=== PATIENT | female | born 1940 ===

== ENCOUNTER 2018-08-13 13:13 | Outpatient (REF) | payer MEDICARE, BC, SELFPAY ==
[2018-08-13 22:02] LABS: BUN 19 mg/dL (7-18); CREATININE 1.13 mg/dL (0.55-1.02); Calcium 9.7 mg/dL (8.5-10.1); Chloride 103 mmol/L (98-107); Estimated GFR 46.45 (mL/min/1.73m2); Glucose 107 mg/dL (70-100); Potassium 4.6 mmol/L (3.5-5.1); Sodium 144 mmol/L (136-145)
== END 2018-08-13 13:33 ==
LOC: NCHCN 13:13
PROVIDERS: PCP Internal Medicine; Visit Provider Internal Medicine
DX: I10 Essential (primary) hypertension (principal); J44.9 Chronic obstructive pulmonary disease, unspecified
CPT/HCPCS: 80048

== ENCOUNTER 2019-11-20 13:31 | Outpatient (REF) | payer MEDICARE, BC, SELFPAY ==
[2019-11-20 21:52] LABS: ALT 111 U/L (14-59); AST 80 U/L (15-37); Albumin 3.8 g/dL (3.4-5.0); Alkaline Phosphatase 125 U/L (46-116); Anion Gap 10.4 mmol/L (3-11); BUN 18 mg/dL (7-18); Bilirubin, Total 0.7 mg/dL (0.2-1.0); CO2 29.6 mmol/L (21.0-32.0); CREATININE 0.96 mg/dL (0.55-1.02); Calcium 9.2 mg/dL (8.5-10.1); Chloride 103 mmol/L (98-107); Estimated GFR 55.92 (mL/min/1.73m2); Glucose 99 mg/dL (74-106); Potassium 4.3 mmol/L (3.5-5.1); Sodium 143 mmol/L (136-145); Total Protein 6.8 g/dL (6.4-8.2)
== END 2019-11-20 13:51 ==
LOC: NCHCN 13:31
PROVIDERS: PCP Internal Medicine; Visit Provider Internal Medicine
DX: I10 Essential (primary) hypertension (principal); K21.9 Gastro-esophageal reflux disease without esophagitis; J44.9 Chronic obstructive pulmonary disease, unspecified; G47.00 Insomnia, unspecified
CPT/HCPCS: 80053

== ENCOUNTER 2020-01-08 10:31 | Outpatient (REF) | payer MEDICARE, BC, SELFPAY ==
[2020-01-08 21:09] LABS: Abs Immature Grans 0.02 10^3/uL (0.0-0.06); Absolute Basophil Count 0.09 10^3/uL (0.0-0.2); Absolute Eosinophil Count 0.46 10^3/uL (0.0-0.7); Absolute Lymphocyte Count 1.67 10^3/uL (1.2-3.4); Absolute Monocyte Count 0.83 10^3/uL (0.1-0.8); Absolute Neutrophil Count 5.87 10^3/uL (1.2-6.7); Eosinophils % 5.1; HCT 47.4 % (36.0-46.0); Immature Grans % 0.2; Lymphocytes % 18.7; MCH 32.3 pg (27.0-33.0); MCHC 33.8 % (32.0-36.0); MCV 95.6 fL (80-95); Monocytes % 9.3; Neutrophils % 65.7; Nucleated RBC 0 %; Platelet Count 224 10^3/uL (130-400); RBC 4.96 10^6/uL (3.93-5.22); RDW 12.4 % (11.7-14.6); RDW-SD 44.1 fL; WBC 8.94 10^3/uL (4.4-10.8)
[2020-01-08 21:26] LABS: INR 1.1 (0.9-1.1); Prothrombin Time 10.8 sec (9.3-11.0)
[2020-01-11 11:11] LABS: HBs Antibody, Quant <3.1 mIU/mL (See Note); Hepatitis B Surface Ab Negative (See Note)
[2020-01-11 11:19] LABS: Hepatitis B Surface Ag Negative (Negative)
[2020-01-11 12:51] LABS: Hepatitis C Ab w Rflx HCV PCR Negative (Negative)
== END 2020-01-08 10:51 ==
LOC: NCHCN 10:31
PROVIDERS: PCP Internal Medicine; Visit Provider Internal Medicine
DX: R94.5 Abnormal results of liver function studies (principal); Z11.59 Encounter for screening for other viral diseases
CPT/HCPCS: 86706; 86803; 87340; 85025; 85610

== ENCOUNTER 2020-07-01 22:16 | Outpatient (REF) | payer MEDICARE, BC, SELFPAY ==
[2020-07-01 21:21] LABS: HCT 45.4 % (36.0-46.0); MCH 31.7 pg (27.0-33.0); MPV 10.3 fL (8.0-11.0); Platelet Count 183 10^3/uL (130-400); RBC 4.73 10^6/uL (3.93-5.22); RDW 13.2 % (11.7-14.6); RDW-SD 46.9 fL; WBC 7.84 10^3/uL (4.4-10.8)
[2020-07-01 21:50] LABS: ALT 114 U/L (14-59); AST 82 U/L (15-37); Albumin 3.8 g/dL (3.4-5.0); Alkaline Phosphatase 114 U/L (46-116); Anion Gap 10.9 mmol/L (3-11); BUN 21 mg/dL (7-18); Bilirubin, Total 0.8 mg/dL (0.2-1.0); CO2 28.1 mmol/L (21.0-32.0); Calcium 9.7 mg/dL (8.5-10.1); Chloride 103 mmol/L (98-107); Estimated GFR 53.21 (mL/min/1.73m2); Ferritin 706 ng/mL (8-252); Glucose 92 mg/dL (74-106); Potassium 3.9 mmol/L (3.5-5.1); Sodium 142 mmol/L (136-145)
== END 2020-07-01 22:17 | disposition home or self-care (01) ==
LOC: NCHCN 22:16
PROVIDERS: PCP Internal Medicine; Visit Provider Internal Medicine
DX: I10 Essential (primary) hypertension (principal); K74.60 Unspecified cirrhosis of liver
CPT/HCPCS: 80053; 85027; 82728

== ENCOUNTER 2020-07-06 21:44 | Outpatient (REF) | payer MEDICARE, BC, SELFPAY ==
[2020-07-06 22:19] LABS: Iron 150 ug/dL (50-170); Total Iron Binding Capacity 344 ug/dL (250-450); Transferrin Sat 44 % (15-50)
== END 2020-07-06 21:45 | disposition home or self-care (01) ==
LOC: NCHCN 21:44
PROVIDERS: PCP Internal Medicine; Visit Provider Internal Medicine
DX: K74.60 Unspecified cirrhosis of liver (principal); I10 Essential (primary) hypertension
CPT/HCPCS: 83540; 83550

== ENCOUNTER 2021-05-17 20:50 | Outpatient (REF) | payer MEDICARE, BC, SELFPAY ==
[2021-05-17 20:54] LABS: Abs Immature Grans 0.02 10^3/uL (0.0-0.06); Absolute Basophil Count 0.07 10^3/uL (0.0-0.2); Absolute Eosinophil Count 0.27 10^3/uL (0.0-0.7); Absolute Monocyte Count 0.66 10^3/uL (0.1-0.8); Absolute Neutrophil Count 4.42 10^3/uL (1.2-6.7); Basophils % 0.9; Eosinophils % 3.5; HCT 50.9 % (36.0-46.0); HGB 16.5 g/dL (11.2-15.7); Immature Grans % 0.3; Lymphocytes % 28.8; MCH 31.5 pg (27.0-33.0); MCHC 32.4 % (32.0-36.0); MCV 97.3 fL (80-95); MPV 9.6 fL (8.0-11.0); Monocytes % 8.6; Neutrophils % 57.9; Nucleated RBC 0 %; Platelet Count 214 10^3/uL (130-400); RBC 5.23 10^6/uL (3.93-5.22); RDW 13.6 % (11.7-14.6); RDW-SD 49.4 fL; WBC 7.64 10^3/uL (4.4-10.8)
[2021-05-17 21:03] LABS: ALT 88 U/L (14-59); AST 69 U/L (15-37); Alkaline Phosphatase 167 U/L (46-116); Anion Gap 8.7 mmol/L (3-11); BUN 23 mg/dL (7-18); Bilirubin, Total 0.7 mg/dL (0.2-1.0); CO2 28.3 mmol/L (21.0-32.0); CREATININE 1.1 mg/dL (0.55-1.02); Calcium 9.3 mg/dL (8.5-10.1); Chloride 106 mmol/L (98-107); Estimated GFR 47.67 (mL/min/1.73m2); Glucose 120 mg/dL (74-106); Potassium 4.2 mmol/L (3.5-5.1); Sodium 143 mmol/L (136-145); Total Protein 7.3 g/dL (6.4-8.2)
[2021-05-17 21:13] LABS: INR 1.7 (0.9-1.1); Prothrombin Time 17.2 sec (9.3-11.0)
== END 2021-05-17 20:51 | disposition home or self-care (01) ==
LOC: NCHCN 20:50
PROVIDERS: PCP Internal Medicine; Visit Provider Internal Medicine
DX: K74.60 Unspecified cirrhosis of liver (principal); I48.91 Unspecified atrial fibrillation
CPT/HCPCS: 80053; 85025; 85610

== ENCOUNTER 2021-06-15 16:40 | Outpatient (REF) | payer MEDICARE, BC, SELFPAY ==
--- OUTSIDE RECORDS SUMMARY | 2021-06-15 16:45 | XMS_ITS | CCD ---
:1940 Author Care Team Providers Name Role Phone Payton HAMM Attending Physician Unavailable Payton HAMM Rounding (Secondary) Physician Unavailab racheal Vital Signs Unknown or Not Available. Allergies Allergy Code Allergy Type Reaction Status No Known Drug Allergies 0 No known drug allergies Active Procedures Unknown or Not Available. History of Immunizations Immunization Code Date Influenza, high dose seasonal 135 02/21/2021 Problems Problem Code Start Date Resolved Date Status Atrial fibrillation [id number] Activ e with rapid ventricular response Hypertension 03359098 Active Serum ferritin high 379867575 Active Results Unknown or Not Available. Active Medications Medication Code Dose Units Frequency Route Modification Start Date/Time Xarelto 15MG 1838284 1 TABLET DAILY ORAL 02/21/2021 Oral Tablet 09:00 Prescription Detail TAKE 1 TABLET ORAL DAILY dilTIAZem HCl 301276 180 MILLIGRAMS DAILY ORAL 021 180MG Oral 08:52 Capsule, Extended Release, 24 HR Prescription Detail TAKE 180 MILLIGRAMS ORAL BRANDIE LY Losartan 201038 50 MILLIGRAMS DAILY ORAL 02/21/2021 Potassium 50MG 08:51 Oral Tablet Prescription Detail TAKE 50 MILLIGRAMS ORAL ALFREDA Y Omeprazole 20MG 354319 20 MILLIGRAMS EVERY ORAL 02/21 Oral Capsule, OTHER DAY 08:51 Delayed Release Prescription Detail TAKE 20 MILLIGRAMS ORAL EVER Y OTHER DAY Medications Administered During Visit Unknown or Not Available. Encounters Encounter Diagnosis Diagnosis Code Start Date Unspecified atrial fibrillation [id number] 04/21/20 21 Social History Smoking Status Code Start Date End Date Former smoker [id number] 05/13/1950 05/13/1999 Patient Decision Aids Unknown or Not Available. Discharge Instructions You were admitted to [facility] on 04/21/2021 14:27 with a principal diagnosis of Unspecified atrial fibrilla tion You were discharged from [facility] Should you have any questions prior to d ischarge, please contact a member of your healthcare team. If you have left the spital and have any questions, please contact your primary care physician. Chief Complaint and Reason For Visit Unknown or Not Available. Function Status Unknown or Not Available. Plan of Care Unknown or Not Available. Referral/Transition of Care Unknown or Not Available.
--- OUTSIDE RECORDS SUMMARY | 2021-06-15 16:45 | XMS_ITS | CCD ---
:1940 Author Care Team Providers Name Role Phone Payton HAMM Attending Physician Unavailable Payton HAMM Rounding (Secondary) Physician Unavailab le Vital Signs Unknown or Not Available. Allergies Allergy Code Allergy Type Reaction Status No Known Drug Allergies 0 No known drug allergies Active Procedures Unknown or Not Available. History of Immunizations Immunization Code Date Influenza, high dose seasonal 135 02/21/2021 Problems Problem Code Start Date Resolved Date Status Atrial fibrillation [id number] Activ e with rapid ventricular response Hypertension 71341559 Active Serum ferritin high 686910774 Active Results Unknown or Not Available. Active Medications Medication Code Dose Units Frequency Route Modification Start Date/Time Xarelto 15MG 8929962 1 TABLET DAILY ORAL 02/21/2021 Oral Tablet 09:00 Prescription Detail TAKE 1 TABLET ORAL DAILY dilTIAZem HCl 666659 180 MILLIGRAMS DAILY ORAL 021 180MG Oral 08:52 Capsule, Extended Release, 24 HR Prescription Detail TAKE 180 MILLIGRAMS ORAL BRANDIE LY Losartan 571780 50 MILLIGRAMS DAILY ORAL 02/21/2021 Potassium 50MG 08:51 Oral Tablet Prescription Detail TAKE 50 MILLIGRAMS ORAL ALFREDA Y Omeprazole 20MG 489977 20 MILLIGRAMS EVERY ORAL 02/21 Oral Capsule, OTHER DAY 08:51 Delayed Release Prescription Detail TAKE 20 MILLIGRAMS ORAL EVER Y OTHER DAY Medications Administered During Visit Unknown or Not Available. Encounters Unknown or Not Available. Social History Smoking Status Code Start Date End Date Former smoker [id number] 05/13/1950 05/13/1999 Patient Decision Aids Unknown or Not Available. Discharge Instructions You were admitted to [facility] on 06/19/2021 14:21 You were discharged from [facility] Should you have any questions prior to d ischarge, please contact a member of your healthcare team. If you have left the ho spital and have any questions, please contact your primary care physician. Chief Complaint and Reason For Visit Unknown or Not Available. Function Status Unknown or Not Available. Plan of Care Unknown or Not Available. Referral/Transition of Care Unknown or Not Available.
--- OUTSIDE RECORDS SUMMARY | 2021-06-15 16:45 | XMS_ITS | CCD ---
:1940 Author Care Team Providers Name Role Phone Payton HAMM Attending Physician Unavailable Vital Signs Vital Sign Value Unit Date/Time Recent/Initial? BP Systolic 135 mmHg 04/21/2021 09:13 Initial VS BP Diastolic 106 mmHg 04/21/2021 09:13 Initial VS Respiratory Rate 20 bpm 04/21/2021 09:13 Initial VS Heart Rate 101 bpm 04/21/2021 09:13 Initial VS O2 % BldC Oximetry 98 % 04/21/2021 09:13 Initi al VS Body Temperature 36.6 degrees 04/21/2021 09:13 Initial VS Allergies Allergy Code Allergy Type Reaction Status No Known Drug Allergies 0 No known drug allergies Active Procedures Procedure Code Procedure Type Date Cardioversion, Elective; External 66304 CPT 04/21/2021 Anesthesia, Extremities, Anterior 49549 CPT 04/21/2021 Trunk, Perineum, Integumentary; Cardioversion History of Immunizations Immunization Code Date Influenza, high dose seasonal 135 02/21/2021 Problems Problem Code Start Date Resolved Date Status Atrial fibrillation [id number] Activ e with rapid ventricular response Hypertension 74487502 Active Serum ferritin high 582109498 Active Results Unknown or Not Available. Active Medications Unknown or Not Available. Medications Administered During Visit Unknown or Not Available. Encounters Encounter Diagnosis Diagnosis Code Start Date Unspecified atrial fibrillation [id number] 04/21/20 21 Social History Smoking Status Code Start Date End Date Former smoker [id number] 05/13/1950 05/13/1999 Patient Decision Aids Unknown or Not Available. Discharge Instructions You were admitted to [facility] on 04/21/2021 07:19 with a principal diagnosis of Unspecified atrial fibrilla tion You had the following procedures done: Cardioversion, Elective; External Anesthesia, Extremitie s, Anterior Trunk, Perineum, Integumentary; Cardioversion You were discharged from [facility] on 04/21/2021 09:10 Should you have any questions prior to [...]
--- OUTSIDE RECORDS SUMMARY | 2021-06-15 16:45 | XMS_ITS | CCD ---
:1940 Author Care Team Providers Name Role Phone Sandy MONTENEGRO Attending Physician Unavailable Vital Signs Unknown or Not Available. Allergies Allergy Code Allergy Type Reaction Status No Known Drug Allergies 0 No known drug allergies Active Procedures Unknown or Not Available. History of Immunizations Immunization Code Date Influenza, high dose seasonal 135 02/21/2021 Problems Problem Code Start Date Resolved Date Status Atrial fibrillation [id number] Activ e with rapid ventricular response Hypertension 65122981 Active Serum ferritin high 544719395 Active Results Unknown or Not Available. Active Medications Medication Code Dose Units Frequency Route Modification Start Date/Time Xarelto 15MG 0446228 1 TABLET DAILY ORAL 02/21/2021 Oral Tablet 09:00 Prescription Detail TAKE 1 TABLET ORAL DAILY dilTIAZem HCl 445844 180 MILLIGRAMS DAILY ORAL 021 180MG Oral 08:52 Capsule, Extended Release, 24 HR Prescription Detail TAKE 180 MILLIGRAMS ORAL BRANDIE LY Losartan 770280 50 MILLIGRAMS DAILY ORAL 02/21/2021 Potassium 50MG 08:51 Oral Tablet Prescription Detail TAKE 50 MILLIGRAMS ORAL ALFREDA Y Omeprazole 20MG 462933 20 MILLIGRAMS EVERY ORAL 02/21 Oral Capsule, OTHER DAY 08:51 Delayed Release Prescription Detail TAKE 20 MILLIGRAMS ORAL EVER Y OTHER DAY Medications Administered During Visit Unknown or Not Available. Encounters Encounter Diagnosis Diagnosis Code Start Date Abnormal findings diagnostic imaging of [id number] 05/29/2021 liver+biliary tract Social History Smoking Status Code Start Date End Date Former smoker [id number] 05/13/1950 05/13/1999 Patient Decision Aids Unknown or Not Available. Discharge Instructions You were admitted to [facility] on 05/29/2021 09:22 with a principal diagnosis of Abnormal findings on diagno stic imaging of liver and biliary tract You were discharged from [facility] on 05/29/2021 09:22 Should you have any questions prior to d ischarge, please contact a member of your healthcare team. If you have left the spital and have any questions, please contact your primary care physician. Chief Complaint and Reason For Visit Chief Complaint Date of Onset CIRRHOSIS OF LIVER Function Status Unknown or Not Available. Plan of Care Unknown or Not Available. Referral/Transition of Care Unknown or Not Available.
--- OUTSIDE RECORDS SUMMARY | 2021-06-15 16:45 | XMS_ITS | CCD ---
:1940 Author Care Team Providers Name Role Phone Payton HAMM Attending Physician Unavailable Vital Signs Unknown or Not Available. Allergies Allergy Code Allergy Type Reaction Status No Known Drug Allergies 0 No known drug allergies Active Procedures Unknown or Not Available. History of Immunizations Immunization Code Date Influenza, high dose seasonal 135 02/21/2021 Problems Problem Code Start Date Resolved Date Status Atrial fibrillation [id number] Activ e with rapid ventricular response Hypertension 54441877 Active Serum ferritin high 973169478 Active Results [facility] COVID RHEONIX* - Collect Date/Richard e: 04/19/2021 09:50 Test Name Code Test Result Test Units Test Ref Range SOURCE= Anterior nasal N/A Tier- PRE-OP N/A SARS COV2 RNA: 05459-4 NEGATIVE N/A REFERENCE RAN GE: NEGAT Active Medications Medication Code Dose Units Frequency Route Modification Start Date/Time Xarelto 15MG 1665342 1 TABLET DAILY ORAL 02/21/2021 Oral Tablet 09:00 Prescription Detail TAKE 1 TABLET ORAL DAILY dilTIAZem HCl 076728 180 MILLIGRAMS DAILY ORAL 021 180MG Oral 08:52 Capsule, Extended Release, 24 HR Prescription Detail TAKE 180 MILLIGRAMS ORAL BRANDIE LY Losartan 262734 50 MILLIGRAMS DAILY ORAL 02/21/2021 Potassium 50MG 08:51 Oral Tablet Prescription Detail TAKE 50 MILLIGRAMS ORAL ALFREDA Y Omeprazole 20MG 537263 20 MILLIGRAMS EVERY ORAL 02/21 Oral Capsule, OTHER DAY 08:51 Delayed Release Prescription Detail TAKE 20 MILLIGRAMS ORAL EVER Y OTHER DAY Medications Administered During Visit Unknown or Not Available. Encounters Encounter Diagnosis Diagnosis Code Start Date Pre-surgery testing [id number] 04/19/2021 Social History Smoking Status Code Start Date End Date Former smoker [id number] 05/13/1950 05/13/1999 Patient Decision Aids Unknown or Not Available. Discharge Instructions You were admitted to [facility] on 04/19/2021 08:34 with a principal diagnosis of Encounter for preprocedural laboratory examination You had the following tests done: YASH PALACIOS* You were discharged from [facility] on 04/19/2021 08:34 Should you have any questions prior to [...]
--- OUTSIDE RECORDS SUMMARY | 2021-06-15 16:45 | XMS_ITS | CCD ---
[...] Start Date Resolved Date Status Atrial fibrillation [id number] Activ e with rapid ventricular response Hypertension 75176912 Active Serum ferritin high 970485933 Active Results COMPREHENSIVE METABOLIC PANEL (CMP) - Co llect Date/Time: 03/29/2021 14:33 Test Name Code Test Result Test Units Test Ref Range GLUCOSE 2345-7 94 mg/dL L=70 H=11 6 BUN 3094-0 23 mg/dL L=6 H=25 CREATININE 2160-0 1.14 mg/dL L=0.51 H=0.95 SODIUM SERUM 2951-2 142 mmol/L L=136 H=14 5 POTASSIUM SERUM 2823-3 4.1 mmol/L L=3.4 H =5.2 CHLORIDE SERUM 2075-0 105 mmol/L L=96 H= 110 CARBON DIOXIDE (CO2) 2028-9 28 mmol/L L=22 H=34 ANION GAP 75462-3 8.8 mmol/L CALCIUM SERUM 97425-7 9.6 mg/dL L=8.2 H=10.2 BILIRUBIN TOTAL 1975-2 0.6 mg/dL L=0.0 H =1.3 ALK. PHOS. 6768-6 169 U/L L=46 H=11 6 SGOT (AST) 1920-8 58 U/L L=15 H=37 SGPT (ALT) 1742-6 85 U/L L=12 H=78 TOTAL PROTEIN 2885-2 7.6 gm/dL L=6.0 H=8 .0 ALBUMIN 1751-7 3.9 gm/dL L=3.4 H=5. 0 AGE 80 years eGFR (non-Afr.Amer.) 49940-8 46 mL/min eGFR (Afr-Japanese) 23921-2 55 mL/min Active Medications Medication Code Dose Units Frequency Route Modification Start Date/Time Xarelto 15MG 8882490 1 TABLET DAILY ORAL 02/21/2021 Oral Tablet 09:00 Prescription Detail TAKE 1 TABLET ORAL DAILY dilTIAZem HCl 480300 180 MILLIGRAMS DAILY ORAL 021 180MG Oral 08:52 Capsule, Extended Release, 24 HR Prescription Detail TAKE 180 MILLIGRAMS ORAL BRANDIE LY Losartan 615048 50 MILLIGRAMS DAILY ORAL 02/21/2021 Potassium 50MG 08:51 Oral Tablet Prescription Detail TAKE 50 MILLIGRAMS ORAL ALFREDA Y Omeprazole 20MG 623895 20 MILLIGRAMS EVERY ORAL 02/21 Oral Capsule, OTHER DAY 08:51 Delayed Release Prescription Detail TAKE 20 MILLIGRAMS ORAL EVER Y OTHER DAY Medications Administered During Visit Unknown or Not Available. Encounters Encounter Diagnosis Diagnosis Code Start Date Other persistent atrial fibrillation I4819 Social History Smoking Status Code Start Date End Date Former smoker [id number] 05/13/1950 05/13/1999 Patient Decision Aids Unknown or Not Available. Discharge Instructions You were admitted to [facility] on 03/29/2021 09:13 with a principal diagnosis of Other persistent atrial fib rillation You had the following tests done: COMPREHENSIVE METABOLIC PANEL (CMP) You were discharged from [facility] on 03/29/2021 00:00 Should you have any questions prior to [...]
[2021-06-16 10:35] LABS: Hep B Core Antibody Negative (Negative)
[2021-06-16 10:58] LABS: Hep A Total Ab w Rflx IgM Negative (Negative)
[2021-06-16 11:23] LABS: Alpha 1 Antitrypsin,Serum 106 mg/dL (90-200); IgA 197 mg/dL (85-499); IgG 968 mg/dL (610-1,616); IgM 111 mg/dL (35-242)
[2021-06-16 14:25] LABS: ANA Interpretation Positive (Negative); ANA Titer Pattern 1:320 Homogeneous
[2021-06-19 12:36] LABS: Smooth Muscle Ab Screen Negative (Negative)
[2021-06-19 12:39] LABS: Mitochondrial Ab, M2 0.1 U
== END 2021-06-15 16:41 | disposition home or self-care (01) ==
LOC: NCHCN 16:40
PROVIDERS: PCP Internal Medicine; Visit Provider Internal Medicine
DX: K74.69 Other cirrhosis of liver (principal); Z01.84 Encounter for antibody response examination
CPT/HCPCS: 82784; 83516; 86704; 86709; 82103; 86038; 86255

== ENCOUNTER 2021-07-24 16:58 | Outpatient (REF) | payer MEDICARE, BC, SELFPAY ==
[2021-07-24 21:57] LABS: BUN 20 mg/dL (7-18); CREATININE 1.2 mg/dL (0.55-1.02); Estimated GFR 43.01 (mL/min/1.73m2)
== END 2021-07-24 16:59 | disposition home or self-care (01) ==
LOC: NCHCN 16:58
PROVIDERS: PCP Internal Medicine; Visit Provider Internal Medicine
DX: K76.89 Other specified diseases of liver (principal)
CPT/HCPCS: 84520; 82565

== ENCOUNTER 2021-09-14 19:01 | Outpatient (REF) | payer MEDICARE, BC, SELFPAY ==
[2021-09-14 13:42] LABS: Abs Immature Grans 0.02 10^3/uL (0.0-0.06); Absolute Basophil Count 0.06 10^3/uL (0.0-0.2); Absolute Eosinophil Count 0.62 10^3/uL (0.0-0.7); Absolute Monocyte Count 0.75 10^3/uL (0.1-0.8); Absolute Neutrophil Count 5.05 10^3/uL (1.2-6.7); Basophils % 0.7; Eosinophils % 7.1; HCT 52.2 % (36.0-46.0); HGB 16.9 g/dL (11.2-15.7); Immature Grans % 0.2; Lymphocytes % 25.3; MCH 31.5 pg (27.0-33.0); MCHC 32.4 % (32.0-36.0); MCV 97 fL (80-95); MPV 9.5 fL (8.0-11.0); Monocytes % 8.6; Neutrophils % 58.1; Platelet Count 222 10^3/uL (130-400); RBC 5.37 10^6/uL (3.93-5.22); RDW 13.6 % (11.7-14.6); RDW-SD 49.2 fL
[2021-09-14 13:54] LABS: ALT 90 U/L (14-59); AST 69 U/L (15-37); Albumin 3.9 g/dL (3.4-5.0); Alkaline Phosphatase 154 U/L (46-116); Anion Gap 11.4 mmol/L (3-11); BUN 20 mg/dL (7-18); CO2 26.6 mmol/L (21.0-32.0); CREATININE 1.1 mg/dL (0.55-1.02); Calcium 9.1 mg/dL (8.5-10.1); Chloride 106 mmol/L (98-107); Estimated GFR 47.55 (mL/min/1.73m2); Glucose 125 mg/dL (74-106); Potassium 4.5 mmol/L (3.5-5.1); Sodium 144 mmol/L (136-145)
== END 2021-09-14 19:02 | disposition home or self-care (01) ==
LOC: NCHCN 19:01
PROVIDERS: PCP Internal Medicine; Visit Provider Internal Medicine
DX: K74.60 Unspecified cirrhosis of liver (principal)
CPT/HCPCS: 80053; 85025

== ENCOUNTER 2022-03-05 12:12 | Outpatient (REF) | payer MEDICARE, BC, SELFPAY ==
[2022-03-05 14:19] LABS: HGB 16.4 g/dL (11.2-15.7); MCH 32.3 pg (27.0-33.0); MCHC 33.5 % (32.0-36.0); MCV 97 fL (80-95); MPV 9.8 fL (8.0-11.0); Platelet Count 245 10^3/uL (130-400); RBC 5.08 10^6/uL (3.93-5.22); RDW 14.2 % (11.7-14.6); RDW-SD 50.4 fL; WBC 13.35 10^3/uL (4.4-10.8)
[2022-03-05 15:14] LABS: ALT 252 U/L (14-59); AST 176 U/L (15-37); Albumin 3.8 g/dL (3.4-5.0); Alkaline Phosphatase 174 U/L (46-116); Anion Gap 8.4 mmol/L (3-11); BUN 27 mg/dL (7-18); Bilirubin, Total 1.1 mg/dL (0.2-1.0); CO2 29.6 mmol/L (21.0-32.0); CREATININE 1.1 mg/dL (0.55-1.02); Calcium 9.5 mg/dL (8.5-10.1); Chloride 107 mmol/L (98-107); Estimated GFR 50.17 (mL/min/1.73m2); Glucose 110 mg/dL (74-106); Potassium 4.6 mmol/L (3.5-5.1); Sodium 145 mmol/L (136-145); Total Protein 7.5 g/dL (6.4-8.2)
[2022-03-05 15:25] LABS: Ferritin 1834 ng/mL (8-252)
== END 2022-03-05 12:13 | disposition home or self-care (01) ==
LOC: NCHCN 12:12
PROVIDERS: PCP Internal Medicine; Visit Provider Internal Medicine
DX: K74.60 Unspecified cirrhosis of liver (principal)
CPT/HCPCS: 80053; 85027; 82728

== ENCOUNTER 2022-03-19 18:25 | Outpatient (REF) | payer MEDICARE, BC, SELFPAY ==
[2022-03-19 16:09] LABS: Iron 219 ug/dL (50-170); Total Iron Binding Capacity 334 ug/dL (250-450); Transferrin Sat 66 % (15-50)
[2022-03-19 17:35] LABS: Ferritin 1238 ng/mL (8-252)
== END 2022-03-19 18:26 | disposition home or self-care (01) ==
LOC: NCHCN 18:25
PROVIDERS: PCP Internal Medicine; Visit Provider Internal Medicine
DX: R79.0 Abnormal level of blood mineral (principal)
CPT/HCPCS: 82728; 83540; 83550

== ENCOUNTER 2022-04-27 23:00 | Outpatient (REF) | payer MEDICARE, BC, SELFPAY ==
[2022-04-27 23:43] LABS: HCT 35.6 % (36.0-46.0); HGB 10.9 g/dL (11.2-15.7); MCH 32.3 pg (27.0-33.0); MCHC 30.6 % (32.0-36.0); MPV 10.1 fL (8.0-11.0); Platelet Count 234 10^3/uL (130-400); RBC 3.37 10^6/uL (3.93-5.22); RDW 13.7 % (11.7-14.6); WBC 7.21 10^3/uL (4.4-10.8)
[2022-04-27 23:50] LABS: MCV 106 fL (80-95)
[2022-04-28 00:15] LABS: Ferritin 173 ng/mL (8-252); Iron 93 ug/dL (50-170)
[2022-04-28 17:04] LABS: Total Iron Binding Capacity 349 ug/dL (250-450)
== END 2022-04-27 23:01 | disposition home or self-care (01) ==
LOC: NCHCN 23:00
PROVIDERS: PCP Internal Medicine; Visit Provider Internal Medicine
DX: E83.119 Hemochromatosis, unspecified (principal)
CPT/HCPCS: 85027; 82728; 83540; 83550

== ENCOUNTER 2022-05-29 20:07 | Outpatient (REF) | payer MEDICARE, BC, SELFPAY ==
[2022-05-29 20:37] LABS: Abs Immature Grans 0.03 10^3/uL (0.0-0.06); Absolute Basophil Count 0.09 10^3/uL (0.0-0.2); Absolute Eosinophil Count 0.54 10^3/uL (0.0-0.7); Absolute Lymphocyte Count 2.22 10^3/uL (1.2-3.4); Absolute Monocyte Count 0.64 10^3/uL (0.1-0.8); Basophils % 1.1; Eosinophils % 6.6; HGB 12.9 g/dL (11.2-15.7); Immature Grans % 0.4; MCH 29.7 pg (27.0-33.0); MCHC 30.7 % (32.0-36.0); MCV 97 fL (80-95); Monocytes % 7.8; Neutrophils % 57.1; Platelet Count 249 10^3/uL (130-400); RBC 4.34 10^6/uL (3.93-5.22); RDW 12.9 % (11.7-14.6); RDW-SD 46.3 fL; WBC 8.22 10^3/uL (4.4-10.8)
[2022-05-29 21:07] LABS: ALT 60 U/L (14-59); AST 68 U/L (15-37); Albumin 3.7 g/dL (3.4-5.0); Alkaline Phosphatase 126 U/L (46-116); Anion Gap 10.2 mmol/L (3-11); BUN 28 mg/dL (7-18); Bilirubin, Total 0.4 mg/dL (0.2-1.0); CO2 26.8 mmol/L (21.0-32.0); CREATININE 1.1 mg/dL (0.55-1.02); Calcium 9.1 mg/dL (8.5-10.1); Chloride 106 mmol/L (98-107); Estimated GFR 50.17 (mL/min/1.73m2); Ferritin 45 ng/mL (8-252); Glucose 183 mg/dL (74-106); Potassium 4.1 mmol/L (3.5-5.1); Sodium 143 mmol/L (136-145); Total Protein 6.5 g/dL (6.4-8.2)
[2022-05-31 10:24] LABS: Transferrin 334 mg/dL (201-352)
== END 2022-05-29 20:08 | disposition home or self-care (01) ==
LOC: NCHCN 20:07
PROVIDERS: PCP Internal Medicine; Visit Provider Internal Medicine
DX: R79.0 Abnormal level of blood mineral (principal)
CPT/HCPCS: 80053; 82728; 84466; 85025

== ENCOUNTER 2023-03-18 12:48 | Outpatient (REF) | payer MEDICARE, BC, SELFPAY ==
[2023-03-18 15:00] LABS: HCT 45.3 % (36.0-46.0); HGB 14.8 g/dL (11.2-15.7); MCH 30.3 pg (27.0-33.0); MCHC 32.7 % (32.0-36.0); MCV 93 fL (80-95); Platelet Count 190 10^3/uL (130-400); RBC 4.88 10^6/uL (3.93-5.22); RDW 15.3 % (11.7-14.6); RDW-SD 52.5 fL; WBC 7.76 10^3/uL (4.4-10.8)
[2023-03-18 15:11] LABS: INR 1.2 (0.9-1.1); Prothrombin Time 12.3 sec (9.1-11.1)
[2023-03-18 15:46] LABS: ALT 75 U/L (14-59); AST 85 U/L (15-37); Albumin 3.4 g/dL (3.4-5.0); Alkaline Phosphatase 203 U/L (46-116); Anion Gap 6.9 mmol/L (3-11); BUN 15 mg/dL (7-18); Bilirubin, Total 0.8 mg/dL (0.2-1.0); CO2 30.1 mmol/L (21.0-32.0); Calcium 9.6 mg/dL (8.5-10.1); Chloride 102 mmol/L (98-107); Glucose 161 mg/dL (74-106); Potassium 4.1 mmol/L (3.5-5.1); Sodium 139 mmol/L (136-145)
== END 2023-03-18 12:49 | disposition home or self-care (01) ==
LOC: NCHCN 12:48
PROVIDERS: PCP Internal Medicine; Visit Provider Internal Medicine
DX: K74.60 Unspecified cirrhosis of liver (principal)
CPT/HCPCS: 80053; 85027; 85610

== ENCOUNTER 2023-09-19 15:51 | Outpatient (REF) | payer MEDICARE, BC, SELFPAY ==
[2023-09-19 21:11] LABS: HCT 48.8 % (36.0-46.0); HGB 15.8 g/dL (11.2-15.7); MCH 31.1 pg (27.0-33.0); MCHC 32.4 % (32.0-36.0); MCV 96 fL (80-95); MPV 10.9 fL (8.0-11.0); Platelet Count 146 10^3/uL (130-400); RBC 5.08 10^6/uL (3.93-5.22); RDW 14.3 % (11.7-14.6); RDW-SD 50.9 fL; WBC 8.95 10^3/uL (4.4-10.8)
[2023-09-19 21:28] LABS: INR 1.6 (0.9-1.1); Iron 120 ug/dL (50-170); Prothrombin Time 15.1 sec (9.1-11.1); Total Iron Binding Capacity 411 ug/dL (250-450); Transferrin Sat 29 % (15-50)
[2023-09-19 21:34] LABS: ALT 63 U/L (14-59); AST 65 U/L (15-37); Albumin 3.8 g/dL (3.4-5.0); Alkaline Phosphatase 184 U/L (46-116); Anion Gap 7.8 mmol/L (3-11); BUN 21 mg/dL (7-18); Bilirubin, Total 0.6 mg/dL (0.2-1.0); CO2 30.2 mmol/L (21.0-32.0); CREATININE 0.9 mg/dL (0.55-1.02); Calcium 9.5 mg/dL (8.5-10.1); Chloride 108 mmol/L (98-107); Estimated GFR 63.04 (mL/min/1.73m2); Glucose 95 mg/dL (74-106); Potassium 4.5 mmol/L (3.5-5.1); Sodium 146 mmol/L (136-145); Total Protein 7.3 g/dL (6.4-8.2)
== END 2023-09-19 15:52 | disposition home or self-care (01) ==
LOC: NCHCN 15:51
PROVIDERS: PCP Internal Medicine; Visit Provider Internal Medicine
DX: K74.60 Unspecified cirrhosis of liver (principal); I48.91 Unspecified atrial fibrillation
CPT/HCPCS: 80053; 85027; 83540; 83550; 85610

== ENCOUNTER 2024-05-01 12:58 | Outpatient (REF) | payer MEDICARE, BC, SELFPAY ==
[2024-05-01 16:08] LABS: INR 2.1 (0.9-1.1); Prothrombin Time 19.6 sec (9.1-11.1)
[2024-05-01 16:48] LABS: ALT 61 U/L (14-59); AST 75 U/L (15-37); Albumin 3.5 g/dL (3.4-5.0); Alkaline Phosphatase 169 U/L (46-116); Bilirubin, Total 0.83 mg/dL (0.2-1.0); Vitamin B12 515 pg/mL (193-986)
[2024-05-01 16:59] LABS: Bilirubin, Direct 0.3 mg/dL (0.0-0.2)
== END 2024-05-01 12:59 | disposition home or self-care (01) ==
LOC: NCHCN 12:58
PROVIDERS: PCP Internal Medicine; Visit Provider Internal Medicine
DX: K74.60 Unspecified cirrhosis of liver (principal); R41.3 Other amnesia
CPT/HCPCS: 80076; 82607; 85610

== ENCOUNTER 2025-01-29 21:49 | Outpatient (REF) | payer MEDICARE, BC, SELFPAY ==
[2025-01-29 21:43] LABS: HCT 50.9 % (36.0-46.0); HGB 16.7 g/dL (11.2-15.7); MCH 31.5 pg (27.0-33.0); MCHC 32.8 % (32.0-36.0); MCV 96 fL (80-95); MPV 10.7 fL (8.0-11.0); Platelet Count 150 10^3/uL (130-400); RBC 5.31 10^6/uL (3.93-5.22); RDW 13.8 % (11.7-14.6); RDW-SD 48.9 fL; WBC 8.14 10^3/uL (4.4-10.8)
[2025-01-29 21:55] LABS: INR 1.9 (0.9-1.1); Prothrombin Time 18.3 sec (9.1-11.1)
[2025-01-29 21:58] LABS: ALT 61 U/L (14-59); AST 75 U/L (15-37); Albumin 3.8 g/dL (3.4-5.0); Alkaline Phosphatase 167 U/L (46-116); Anion Gap 4.4 mmol/L (3-11); BUN 22 mg/dL (7-18); Bilirubin, Total 0.9 mg/dL (0.2-1.0); CO2 32.6 mmol/L (21.0-32.0); Calcium 10.5 mg/dL (8.5-10.1); Chloride 105 mmol/L (98-107); Estimated GFR 62.65 (mL/min/1.73m2); Glucose 107 mg/dL (74-106); Potassium 4.7 mmol/L (3.5-5.1); Sodium 142 mmol/L (136-145); Total Protein 7.3 g/dL (6.4-8.2)
== END 2025-01-29 21:50 | disposition home or self-care (01) ==
LOC: NCHCN 21:49
PROVIDERS: PCP Internal Medicine; Visit Provider Internal Medicine
DX: K74.60 Unspecified cirrhosis of liver (principal)
CPT/HCPCS: 80053; 85027; 85610